=== PATIENT | female | born 1955 | race Caucasian/White ===

== ENCOUNTER 2016-06-24 09:32 | Emergency (ER) | payer SELFPAY ==
--- NOTE | 2016-06-24 09:45 | DR.GENAD ---
HPI - PCP Primary Care Physician: UNK - HPI Comment HPI Comment: PATIENT COMPREHENDS. HAVE HISTOEY OF HYPERTENTION. DENIES HEADACHE. - Complaint/Symptoms Chief Complaint Doctors Comments: LEFT SIDE WEAKNESS, LEFT SIDE GAUZE AND SLURRED SPEECH THAT STARTED 15 MIN AGO. Chief Complaint:: PT C/O STROKE LIKE SYMPTOMS THAT STARTED 15 MINS [employer]. LT SIDED WEAKNESS LT FACIAL DROOPING AND SLURRED SPEECH. - Nurses notes reviewed Nurses Notes Review: Yes - Source History Provided: Patient, EMS - Mode of Arrival Mode of Arrival: EMS - Timing Onset of Chief Complaint: 06/24/16 Came on: Suddenly - Duration Duration: Constant Duration: Minutes - Severity Severity: Moderate <TED JASSO - Last Filed: 06/24/16 11:39> PMH - PMH Past Medical History: No Past Surgical History: Yes - Family History History of Family Medical Conditions: No - Social History Does patient currently use any type of tobacco product: Yes Have you used tobacco products in the last 12 months: Yes Type of Tobacco Use: Cigarettes Does any household member use tobacco: No Alcohol Use: None Do you use any recreational Drugs:: No Lives With: Family Lives Where: Home - infectious screening In the last 2 months have you had wt loss of >10#?: NO Have you had fever, night sweats or hemotysis?: No Have you traveled outside the country in the last 6 months?: No Isolation: Standard <TED JASSO - Last Filed: 06/24/16 11:39> ROS - Review of Systems Constitutional: Weakness (LEFT SIDED WEAKNESS, RIGHT FACIAL WEAKNESS) Eyes: Other (EYS DEVIATED TO RIGHT.) ENTM: negative: Mouth Pain (ABSENT GAG REFLEX.) Respiratoy: No Symptoms Reported Cardiovascular: No Symptoms Reported Gastrointestinal/Abdominal: No Symptoms Reported Genitourinary: No Symptoms Reported Neurological: Weakness (LEFT SIDED, RIGHT FACIA.), Speech Problem Musculoskeletal: negative: Back Pain Integumentary: No Symptoms Reported Hematologic/Lymphatic: No Symptoms Reported Endocrine: No Symptoms Reported All Other Systems: Reviewed and Negative <TED JASSO - Last Filed: 06/24/16 11:39> PE - General Limitations: Other (SLURRED SPEECH) General Appearance: Alert - Head Head Exam: Normal Inspection - Eyes Eye exam: PERRL, Other (EYE DEVIATED TO RIGHT SIDE.) - ENT ENT Exam: Normal External Ear Exam External Ear Exam: Normal External Inspection TM/Canal Exam: Bilateral Normal Nose Exam: Normal Nose Exam Mouth Exam: Other (RIGHT FACIAL WEAKNESS) Throat Exam: Other (ABSENT GAG) - Neck Neck Exam: Trachea Midline - Chest Chest Inspection: Symmetric Chest Wall Rise - Respiratory Respiratory Exam: Normal Lung Sounds Bilat Respiratory Exam: Bilateral Clear to Auscultation - Cardiovascular Cardiovascular Exam: Regular Rate, Normal Rhythm, Normal Heart Sounds - Abdominal Exam Abdominal Exam: Normal Bowel Sounds, Soft, Tenderness - Extremities Extremities Exam: Other (WEAKNERSS LEFT SIDE AND RIFHR FACE.) - Back Back Exam: Normal Inspection - Neurologic Neurological Exam: Alert, Oriented X3, Motor Sensory Deficit (LEFT SIDED WEAKNESS ), Other (RIGHT FACIAL WEAKNESS). negative: Reflexes Normal (RE) - Psychiatric Psychiatric Exam: Anxious - Skin Skin Exam: Normal Color <TED JASSO - Last Filed: 06/24/16 11:39> - Vital Signs Vitals: Pulse Rate [Right Radial] 106 Respiratory Rate 18 Blood Pressure [Left Arm] 150/70 Blood Pressure 144/65 O2 Sat by Pulse Oximetry 98 (KRISS GARY) (TED JASSO) Course - Treatment Treatment: 1020: case discussed with Dr. Ochoa requested admit to medical and he would consult. Dr. Paulino accepted patient in [facility]. <KRISS GARY - Last Filed: 06/24/16 10:36> ROR - Labs Reviewed Result Diagrams: 06/24/16 09:50 06/24/16 09:50 <KRISS GARY - Last Filed: 06/24/16 10:36> - Labs Reviewed Result Diagrams: 06/24/16 09:50 06/24/16 09:50 <TED JASSO - Last Filed: 06/24/16 11:39> - Labs Reviewed Laboratory: WBC 9.7 X10^3/uL (3.6-10.0) 06/24/16 09:50 RBC 4.78 X10^6/uL (3.5-5.4) 06/24/16 09:50 Hgb 8.8 g/dL (12.0-16.0) L 06/24/16 09:50 Hct 29.5 % (36.0-47.0) L 06/24/16 09:50 MCV 61.6 fL (80.0-100.0) L 06/24/16 09:50 MCH 18.5 pg (27.0-34.0) L 06/24/16 09:50 MCHC 29.9 g/dL (33.0-35.0) L 06/24/16 09:50 RDW 17.0 % (11.6-16.5) H 06/24/16 09:50 Plt Count 288 X10^3/uL (150.0-450.0) 06/24/16 09:50 Plt Count Comment Adequate (ADEQUATE) 06/24/16 09:50 MPV 8.1 fL (7.4-11.0) 06/24/16 09:50 Neut % 60.7 % (42.0-75.0) 06/24/16 09:50 Lymph % 33.4 % (21.0-51.0) 06/24/16 09:50 [place] % 3.7 % (0.0-13.0) 06/24/16 09:50 Eos % 1.3 % (0.9-2.9) 06/24/16 09:50 Baso % 0.9 % (0.2-1.0) 06/24/16 09:50 Neut # 5.9 x10^3/uL (2.2-4.8) H 06/24/16 09:50 Lymph # 3.2 X10^3/uL (1.3-2.9) H 06/24/16 09:50 [place] # 0.4 x10^3/uL (0.3-0.8) 06/24/16 09:50 Eos # 0.1 x10^3/uL (0.0-0.2) 06/24/16 09:50 Baso # 0.1 X10^3/uL (0.0-0.1) 06/24/16 09:50 Absolute Nucleated RBC 0.0 /100WBC 06/24/16 09:50 Plt Morphology Comment Normal (NORMAL) 06/24/16 09:50 RBC Morphology Abnormal (NORMAL) A 06/24/16 09:50 Hypochromasia 3+ A 06/24/16 09:50 Poikilocytosis 1+ A 06/24/16 09:50 Microcytosis 2+ A 06/24/16 09:50 Macrocytosis 1+ A 06/24/16 09:50 Target Cells Slight A 06/24/16 09:50 INR Target Range - 06/24/16 09:50 INR 1.01 (0.8-1.3) 06/24/16 09:50 PTT 27.9 SECONDS (22.9-36.5) 06/24/16 09:50 PTT Comment - 06/24/16 09:50 Fibrinogen 388 mg/dL (239-489) 06/24/16 09:50 Sodium 140 mmol/L (136-145) 06/24/16 09:50 Corrected Sodium 140 mmol/L (136-145) 06/24/16 09:50 Potassium 4.3 mmol/L (3.5-5.1) 06/24/16 09:50 Chloride 107 mmol/L (98-107) 06/24/16 09:50 Carbon Dioxide 25.8 mmol/L (21-32) 06/24/16 09:50 BUN 8 mg/dL (7-18) 06/24/16 09:50 Creatinine 0.74 mg/dL (0.55-1.02) 06/24/16 09:50 Est GFR (MDRD) Af Amer > 60 (>60) 06/24/16 09:50 Est GFR (MDRD) Non-Af > 60 (>60) 06/24/16 09:50 Glucose 113 mg/dL (65-99) H 06/24/16 09:50 Calcium 8.5 mg/dL (8.5-10.1) 06/24/16 09:50 Corrected Calcium TNP 06/24/16 09:50 Total Bilirubin 0.50 mg/dL (0.2-1.0) 06/24/16 09:50 AST 18 Units/L (15-37) 06/24/16 09:50 ALT 23 Units/L (12-78) 06/24/16 09:50 Alkaline Phosphatase 114 Units/L (46-116) 06/24/16 09:50 Total Protein 7.1 g/dL (6.4-8.2) 06/24/16 09:50 Albumin 3.6 g/dL (3.4-5.0) 06/24/16 09:50 Globulin 3.5 g/dL (2.5-4.5) 06/24/16 09:50 Albumin/Globulin Ratio 1.0 Ratio (1.1-2.1) L 06/24/16 09:50 Triglycerides 88 mg/dL (0-150) 06/24/16 09:50 Cholesterol 181 mg/dL (0-200) 06/24/16 09:50 LDL Cholesterol, Calc 127 mg/dL (0-100) H 06/24/16 09:50 HDL Cholesterol 36 mg/dL (40-60) L 06/24/16 09:50 Cholesterol/HDL Ratio 5.0 (0.0-5.0) 06/24/16 09:50 Specimen Type Catherized urine 06/24/16 09:58 Urine Color Yellow (YELLOW) 06/24/16 09:58 Urine Appearance Cloudy (CLEAR) 06/24/16 09:58 Urine pH 6.0 (5.0 - 8.0) 06/24/16 09:58 Ur Specific [place] 1.015 (1.000-1.030) 06/24/16 09:58 Urine Protein 1+ (NEGATIVE) 06/24/16 09:58 Urine Glucose (UA) Negative (NEGATIVE) 06/24/16 09:58 Urine Ketones Negative (NEGATIVE) 06/24/16 09:58 Urine Occult Blood 1+ (NEGATIVE) 06/24/16 09:58 Urine Nitrite Positive (NEGATIVE) 06/24/16 09:58 Urine Bilirubin Negative (NEGATIVE) 06/24/16 09:58 Urine Urobilinogen Normal (NORMAL) 06/24/16 09:58 Ur Leukocyte Esterase 3+ (NEGATIVE) 06/24/16 09:58 Urine RBC 0-2 /HPF (NEGATIVE) 06/24/16 09:58 Urine WBC 25-50 /HPF (NEGATIVE) 06/24/16 09:58 Ur Squamous Epith Cells Negative /HPF (NEGATIVE) 06/24/16 09:58 Urine Bacteria 4+ /HPF (NEGATIVE) 06/24/16 09:58 Ur Culture Indicated? Yes/culture set up 06/24/16 09:58 (KRISS GARY) <KRISS GARY - Last Filed: 06/24/16 10:36> <TED JASSO - Last Filed: 06/24/16 11:39> - Diagnosis Discharge Problem: Brain mass - Discharge Plan Disposition: ADMITTED INPATIENT Condition: Stable - Follow ups/Referrals Follow ups/Referrals: Amber BOLANOSc [Primary Care Provider] - 3 days - Instructions
--- NOTE | 2016-06-24 09:56 | CT ---
HISTORY: Altered mental status, left-sided weakness Study: CT head without contrast Comparison: None Technique: Axial non contrast images with coronal and sagittal reformats. Dose reduction procedures were used with MA/kv adjusted for body size. Findings: The ventricles are normal in size, shape, and position. There is a large area of decreased attenuati on in the right frontal white matter and cortex having the appearance of an old CVA. More posteriorl y in the right frontal lobe there is an area decreased attenuation in the cortex and subcortical whi te matter suggestive of an old CVA. There is an area of decreased attenuation in the left posterior parietal cortex and white matter having the appearance of an old CVA. There is an old left occipital CVA. Originating from the posterior aspect of the falx and best visualized on series 4 axial images 17 through 20, series 6 sagittal images 13 through 15 and series 5 coronal images 29 through 31 is a slightly hyperdense 1.89 by 1.7 by 1.74 centimeter mass likely representing a partially calcified meningioma. No evidence for hemorrhage or extra-axial fluid collection is identified. No definite ev idence for recent CVA is identified, however, if recent CVA or extension of 1 of the patient's multi ple old CVAs is a strong clinical consideration MRI with and without contrast and with diffusion pratibha ging would be of further diagnostic value. IMPRESSION: No definite evidence for acute CVA or hemorrhage Multiple old CVAs as described 1.89 x 1.7 x 1.74 centimeter slightly hyperdense mass originating on the left side of the posterior falx and likely representing a meningioma. Recommendation: Consider MRI with and without contrast and with diffusion imaging Reported By:
[2016-06-24 10:02] LABS: EOSINOPHILS # (AUTO) 0.1 x10^3/uL (0.0-0.2); EOSINOPHILS % (AUTO) 1.3 % (0.9-2.9); HEMOGLOBIN 8.8 g/dL (12.0-16.0); MEAN CORPUSCULAR HGB CONC 29.9 g/dL (33.0-35.0); MONOCYTES # (AUTO) 0.4 x10^3/uL (0.3-0.8); RED BLOOD COUNT 4.78 X10^6/uL (3.5-5.4)
[2016-06-24 10:12] VITALS: BP 150/70
[2016-06-24 10:14] LABS: ALANINE AMINOTRANSFERASE 23 Units/L (12-78); ALBUMIN 3.6 g/dL (3.4-5.0); ALKALINE PHOSPHATASE 114 Units/L (46-116); ASPARTATE AMINO TRANSFERASE 18 Units/L (15-37); BLOOD UREA NITROGEN 8 mg/dL (7-18); CALCIUM 8.5 mg/dL (8.5-10.1); CARBON DIOXIDE 25.8 mmol/L (21-32); CHLORIDE 107 mmol/L (98-107); CHOLESTEROL 181 mg/dL (0-200); COR NA(FOR HYPERGLY) 140 mmol/L (136-145); CREATININE 0.74 mg/dL (0.55-1.02); GLUCOSE 113 mg/dL (65-99); HDL CHOLESTEROL 36 mg/dL (40-60); SODIUM 140 mmol/L (136-145); TOTAL PROTEIN 7.1 g/dL (6.4-8.2); TRIGLYCERIDES 88 mg/dL (0-150); eGFR BLACK RACES > 60 (>60); eGFR NON BLACK RACES > 60 (>60)
[2016-06-24 10:17] LABS: BILIRUBIN,URINE NEGATIVE (NEGATIVE); BLOOD/HEMOGLOBIN,URINE 1+ (NEGATIVE); GLUCOSE, URINE NEGATIVE (NEGATIVE); KETONES,URINE NEGATIVE (NEGATIVE); LEUKOCYTE ESTERASE ,URINE 3+ (NEGATIVE); NITRITES,URINE POSITIVE (NEGATIVE); PROTEIN,URINE 1+ (NEGATIVE); UROBILINOGEN,URINE NORMAL (NORMAL)
[2016-06-24 10:17] LABS: BASOPHILS # (AUTO) 0.1 X10^3/uL (0.0-0.1); BASOPHILS % (AUTO) 0.9 % (0.2-1.0); HEMATOCRIT 29.5 % (36.0-47.0); LYMPHOCYTES # (AUTO) 3.2 X10^3/uL (1.3-2.9); LYMPHOCYTES % (AUTO) 33.4 % (21.0-51.0); MEAN CORPUSCULAR HEMOGLOBIN 18.5 pg (27.0-34.0); MEAN CORPUSCULAR VOLUME 61.6 fL (80.0-100.0); MEAN PLATELET VOLUME 8.1 fL (7.4-11.0); MONOCYTES % (AUTO) 3.7 % (0.0-13.0); NEUTROPHILS # (AUTO) 5.9 x10^3/uL (2.2-4.8); NEUTROPHILS % (AUTO) 60.7 % (42.0-75.0); PLATELET COUNT 288 X10^3/uL (150.0-450.0); WHITE BLOOD COUNT 9.7 X10^3/uL (3.6-10.0)
[2016-06-24 10:21] LABS: HYPOCHROMASIA 3+; MICROCYTOSIS 2+; PLATELET MORPHOLOGY COMMENT NORMAL (NORMAL); POIKILOCYTOSIS 1+
[2016-06-24 10:22] LABS: TARGET CELLS SLIGHT
[2016-06-24 10:26] LABS: APPEARANCE,URINE CLOUDY (CLEAR); BACTERIA,URINE 4+ /HPF (NEGATIVE); COLOR,URINE YELLOW (YELLOW); RBC,URINE 0-2 /HPF (NEGATIVE); SQUAMOUS EPITHELIAL CELL,UR NEGATIVE /HPF (NEGATIVE)
== END 2016-06-24 10:53 | disposition short-term general hospital (02) ==
LOC: ER 09:32
DX: G93.89 Other specified disorders of brain (principal); B96.29 Other Escherichia coli [E. coli] as the cause of diseases classified elsewhere
CPT/HCPCS: 36415; 51702; 70450; 80053; 80061; 81001; 85025; 85384; 85610; 85730; 87086; 87186; 93005; 93010; 96365; 99284; 99285; A4222

== ENCOUNTER 2017-02-23 05:24 | Emergency (ER) | payer SELFPAY ==
[2017-02-23 05:47] VITALS: BP 126/67; BMI 23.6
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
[2017-02-23 06:04] LABS: BILIRUBIN,URINE NEGATIVE (NEGATIVE); BLOOD/HEMOGLOBIN,URINE 1+ (NEGATIVE); GLUCOSE, URINE NEGATIVE (NEGATIVE); KETONES,URINE NEGATIVE (NEGATIVE); LEUKOCYTE ESTERASE ,URINE 2+ (NEGATIVE); NITRITES,URINE NEGATIVE (NEGATIVE); PH,URINE 6.5 (5.0 - 8.0); PROTEIN,URINE 1+ (NEGATIVE); UROBILINOGEN,URINE NORMAL (NORMAL)
[2017-02-23 06:12] LABS: APPEARANCE,URINE CLOUDY (CLEAR); BACTERIA,URINE 3+ /HPF (NEGATIVE); COLOR,URINE YELLOW (YELLOW); SQUAMOUS EPITHELIAL CELL,UR RARE /HPF (NEGATIVE)
[2017-02-23 06:23] LABS: BASOPHILS # (AUTO) 0.1 X10^3/uL (0.0-0.1); BASOPHILS % (AUTO) 1.3 % (0.2-1.0); EOSINOPHILS # (AUTO) 0.1 x10^3/uL (0.0-0.2); EOSINOPHILS % (AUTO) 1.2 % (0.9-2.9); HEMATOCRIT 42.5 % (36.0-47.0); HEMOGLOBIN 14.2 g/dL (12.0-16.0); LYMPHOCYTES # (AUTO) 2.7 X10^3/uL (1.3-2.9); LYMPHOCYTES % (AUTO) 27.5 % (21.0-51.0); MEAN CORPUSCULAR HEMOGLOBIN 29.8 pg (27.0-34.0); MEAN CORPUSCULAR HGB CONC 33.6 g/dL (33.0-35.0); MEAN CORPUSCULAR VOLUME 88.7 fL (80.0-100.0); MEAN PLATELET VOLUME 8.3 fL (7.4-11.0); MONOCYTES # (AUTO) 0.5 x10^3/uL (0.3-0.8); MONOCYTES % (AUTO) 5.2 % (0.0-13.0); NEUTROPHILS # (AUTO) 6.3 x10^3/uL (2.2-4.8); NEUTROPHILS % (AUTO) 64.8 % (42.0-75.0); PLATELET COUNT 346 X10^3/uL (150.0-450.0); RED BLOOD COUNT 4.78 X10^6/uL (3.5-5.4); RED CELL DISTRIBUTION WIDTH 13.5 % (11.6-16.5); WHITE BLOOD COUNT 9.7 X10^3/uL (3.6-10.0)
[2017-02-23 06:43] LABS: ALANINE AMINOTRANSFERASE 18 Units/L (12-78); ALBUMIN 3.3 g/dL (3.4-5.0); ALKALINE PHOSPHATASE 76 Units/L (46-116); ASPARTATE AMINO TRANSFERASE 16 Units/L (15-37); BLOOD UREA NITROGEN 9 mg/dL (7-18); CALCIUM 9.2 mg/dL (8.5-10.1); CARBON DIOXIDE 25.4 mmol/L (21-32); CHLORIDE 106 mmol/L (98-107); COR CA(FOR HYPOALB) 9.8 mg/dL (8.5-10.1); CREATININE 0.63 mg/dL (0.55-1.02); SODIUM 143 mmol/L (136-145); TOTAL PROTEIN 6.9 g/dL (6.4-8.2); eGFR BLACK RACES > 60 (>60); eGFR NON BLACK RACES > 60 (>60)
--- NOTE | 2017-02-23 06:53 | CT ---
HISTORY: Altered mental status Study: CT head without contrast Comparison: 06/24/2016 Technique: Axial noncontrast images with coronal and sagittal reformats. Dose reduction procedures we re used with mA/kv adjusted for body size. Findings: The ventricles are normal in size, shape, and position. There is decreased attenuation in the periven tricular white matter suggestive of small vessel vascular disease. There is an area of encephalomalac ia in the right frontal lobe consistent with an old CVA. There is an area of encephalomalacia in the distribution of the right middle cerebral artery likely due to an old CVA. This has increased in size since the prior examination but still does not appear recent. There is an old left posterior parieta l CVA unchanged from the prior examination. There is no definite evidence for recent CVA hemorrhage o r extra-axial fluid collection. Once again noted is a slightly hyperdense mass in originating from th e left side of the posterior falx consistent with a partially calcified meningioma unchanged from the prior examination. If acute CVA or extension of 1 of the patient's old CVAs is suspected MRI with di ffusion imaging is recommended for further evaluation. IMPRESSION: No definite acute intracranial abnormality Large area of encephalomalacia in the distribution of the right MCA increased in size when compared w ith the prior examination but not visibly recent Old CVAs right frontal left posterior parietal regions Stable left posterior falx meningioma Reported By:
[2017-02-23] MEDS ORDERED: K-LYTE EFFERVESCENT ONE (07:10)
[2017-02-23] MEDS ORDERED: K-LYTE EFFERVESCENT PO SCH (08:00)
== END 2017-02-23 07:39 | disposition home or self-care (01) ==
LOC: ER 05:24
DX: G93.89 Other specified disorders of brain (principal); I63.9 Cerebral infarction, unspecified; D32.9 Benign neoplasm of meninges, unspecified; N30.01 Acute cystitis with hematuria; B96.29 Other Escherichia coli [E. coli] as the cause of diseases classified elsewhere; R51 Headache
CPT/HCPCS: 36415; 70450; 80053; 80307; 81001; 85025; 87086; 87088; 87186; 99283; G0434

== ENCOUNTER 2022-06-03 13:55 | Inpatient (IN) ==
[2022-06-03 15:19] VITALS: BMI 34.2
[2022-06-03] MEDS: NS 1,000 ML IV 1,000 ML IV SCH (16:07)
[2022-06-03 16:18] LABS: BASOPHILS # (AUTO) 0.1 X10^3/uL (0.0-0.1); BASOPHILS % (AUTO) 0.9 % (0.2-1.0); EOSINOPHILS # (AUTO) 0.1 x10^3/uL (0.0-0.2); EOSINOPHILS % (AUTO) 0.8 % (0.9-2.9); HEMATOCRIT 39.6 % (36.0-47.0); HEMOGLOBIN 12.9 g/dL (12.0-16.0); LYMPHOCYTES # (AUTO) 1.9 X10^3/uL (1.3-2.9); LYMPHOCYTES % (AUTO) 14.9 % (21.0-51.0); MEAN CORPUSCULAR HEMOGLOBIN 27.6 pg (27.0-34.0); MEAN CORPUSCULAR HGB CONC 32.7 g/dL (33.0-35.0); MEAN CORPUSCULAR VOLUME 84.6 fL (80.0-100.0); MONOCYTES # (AUTO) 1.2 x10^3/uL (0.3-0.8); MONOCYTES % (AUTO) 9.4 % (0.0-13.0); NEUTROPHILS # (AUTO) 9.6 x10^3/uL (2.2-4.8); RED BLOOD COUNT 4.68 X10^6/uL (3.5-5.4); RED CELL DISTRIBUTION WIDTH 14.8 % (11.6-16.5)
[2022-06-03 16:35] LABS: ALANINE AMINOTRANSFERASE 19 Units/L (12-78); ALBUMIN 2.8 g/dL (3.4-5.0); ALKALINE PHOSPHATASE 92 Units/L (46-116); ASPARTATE AMINO TRANSFERASE 18 Units/L (15-37); BLOOD UREA NITROGEN 13 mg/dL (7-18); CALCIUM 9.2 mg/dL (8.5-10.1); CARBON DIOXIDE 31.7 mmol/L (21-32); CHLORIDE 104 mmol/L (98-107); COR CA(FOR HYPOALB) 10.2 mg/dL (8.5-10.1); COR NA(FOR HYPERGLY) 143 mmol/L (136-145); CREATININE 0.83 mg/dL (0.55-1.02); SODIUM 142 mmol/L (136-145); TOTAL PROTEIN 7.2 g/dL (6.4-8.2); eGFR NON BLACK RACES > 60 (>60)
[2022-06-03] MEDS ORDERED: AMBIEN PO PRN (17:46)
[2022-06-03 20:15] LABS: BILIRUBIN,URINE NEGATIVE (NEGATIVE); BLOOD/HEMOGLOBIN,URINE 3+ (NEGATIVE); GLUCOSE, URINE NEGATIVE (NEGATIVE); KETONES,URINE NEGATIVE (NEGATIVE); LEUKOCYTE ESTERASE ,URINE 3+ (NEGATIVE); NITRITES,URINE NEGATIVE (NEGATIVE); PROTEIN,URINE 2+ (NEGATIVE); UROBILINOGEN,URINE NORMAL (NORMAL)
[2022-06-03 20:18] LABS: APPEARANCE,URINE CLOUDY (CLEAR); BACTERIA,URINE 2+ /HPF (NEGATIVE); COLOR,URINE YELLOW (YELLOW); SQUAMOUS EPITHELIAL CELL,UR FEW /HPF (NEGATIVE)
[2022-06-03] MEDS: MERREM VIAL 1 G in NS 100 ML IV 100 ML IV SCH (21:00)
[2022-06-03] MEDS ORDERED: MERREM VIAL 500 MG in NS 100 ML IV 100 ML IV SCH (22:00)
[2022-06-03] MEDS ORDERED: TYLENOL 325 MG TAB PO PRN (22:53)
[2022-06-04 06:15] LABS: BASOPHILS # (AUTO) 0.2 X10^3/uL (0.0-0.1); BASOPHILS % (AUTO) 1.7 % (0.2-1.0); EOSINOPHILS # (AUTO) 0.2 x10^3/uL (0.0-0.2); HEMATOCRIT 36.9 % (36.0-47.0); HEMOGLOBIN 12.1 g/dL (12.0-16.0); LYMPHOCYTES # (AUTO) 2.1 X10^3/uL (1.3-2.9); LYMPHOCYTES % (AUTO) 18.9 % (21.0-51.0); MEAN CORPUSCULAR HEMOGLOBIN 27.5 pg (27.0-34.0); MEAN CORPUSCULAR HGB CONC 32.9 g/dL (33.0-35.0); MEAN CORPUSCULAR VOLUME 83.6 fL (80.0-100.0); MEAN PLATELET VOLUME 8.3 fL (7.4-11.0); MONOCYTES # (AUTO) 0.7 x10^3/uL (0.3-0.8); MONOCYTES % (AUTO) 6.9 % (0.0-13.0); NEUTROPHILS # (AUTO) 7.7 x10^3/uL (2.2-4.8); NEUTROPHILS % (AUTO) 70.5 % (42.0-75.0); RED BLOOD COUNT 4.42 X10^6/uL (3.5-5.4); RED CELL DISTRIBUTION WIDTH 14.3 % (11.6-16.5); WHITE BLOOD COUNT 10.9 X10^3/uL (3.6-10.0)
[2022-06-04] MEDS: MERREM VIAL 1 G in NS 100 ML IV 100 ML IV SCH ×3 (06:15→21:43)
[2022-06-04 06:26] LABS: ALANINE AMINOTRANSFERASE 21 Units/L (12-78); ALBUMIN 2.5 g/dL (3.4-5.0); ALKALINE PHOSPHATASE 83 Units/L (46-116); ASPARTATE AMINO TRANSFERASE 20 Units/L (15-37); BLOOD UREA NITROGEN 10 mg/dL (7-18); CALCIUM 8.5 mg/dL (8.5-10.1); CARBON DIOXIDE 24.9 mmol/L (21-32); CHLORIDE 105 mmol/L (98-107); COR CA(FOR HYPOALB) 9.7 mg/dL (8.5-10.1); COR NA(FOR HYPERGLY) 141 mmol/L (136-145); CREATININE 0.71 mg/dL (0.55-1.02); SODIUM 140 mmol/L (136-145); TOTAL PROTEIN 6.5 g/dL (6.4-8.2); eGFR NON BLACK RACES > 60 (>60)
--- NOTE | 2022-06-04 07:43 | DR.H&P ---
H&P History & Physical for Day of: H&P Date: 06/03/22 Chief Complaint Chief Complaint: Dysuria Confusion Lower abdominal pain Allergies Allergies Allergy/AdvReac Type Severity Reaction Status Date / Time Penicillins Allergy Mild Verified 05/15/22 09:25 meperidine [From Demerol] Allergy Verified 06/03/22 16:07 Sulfa (Sulfonamide Allergy Verified 06/03/22 16:06 Antibiotics) [SULFA] History of Present Illness History of Present Illness: Pt is a 66 year old female admitted from clinic after failing outpatient treatment for urinary tract infection. Presents with her daughter for c/o possible UTI. Reports she had some vaginal itching last week and she took a Diflucan pill because she has a hx of yeast infections. She reports she then started with mild dysuria, frequency, and urinary odor a few days ago. Reports she had a fever of 101.6 F Tuesday afternoon, and 99.6 F yesterday afternoon. Reports she has also had some chills. Reports she took ibuprofen. Pt daughter reports she has also seemed to be more confused the last few days. Reports she wears pull ups for occasional accidents, but she has had a lot more the last few days. Pt daughter also reports she was acting confused this morning and going the wrong way to get to the bathroom, for example. Reports she was treated for a UTI last month with Bactrim. She reports the medication caused her to by shaky, N/, and feel really bad. Reports her symptoms did seem to clear up then. Patient denies cough, congestion, N/V, SOB, CP, palpitations, and any other symptoms. Reports she does drink water and has been eating and drinking normal for the most part. Labs: Wbc 13, Hgb 12.9, Plt 236, Na 142, K 3.6, Creatinine 0.83, Glucose 127, Blood/Urine culture. Will admit patient for altered mental status likely due to acute urinary tract infection. Will start on IVF NS@75ml/h, regular diet, resume home medications. Based on previous urine culture will start patient on antibiotics IV meropenem. Continue to closely monitor and follow up labs in the morning. Past Medical History Past Medical History: CVA, Headaches and Hypertension Past Surgical History Surgical History: and Hysterectomy Family History Family Medical History: Diabetes Mellitus, Cancer, Coronary Artery Disease and Hypertension Social History Does patient currently use any type of tobacco product: Yes Have you used tobacco products in the last 12 months: No Type of Tobacco Use: Cigarettes How many years tobacco product used: 35 Alcohol Use: Rarely Drug Use: None Medications Home Medications: Penicillins Allergy (Mild, Verified 05/15/22 09:25) meperidine [From Demerol] Allergy (Verified 06/03/22 16:07) Sulfa (Sulfonamide Antibiotics) [SULFA] Allergy (Verified 06/03/22 16:06) CONTINUE taking the following medications aspirin 81 mg tablet,delayed release 81 mg PO QDAY 06/03/22 [History] Labs Result Diagrams: 06/04/22 05:45 06/04/22 05:45 Labs: Laboratory WBC 10.9 X10^3/uL (3.6-10.0) H 06/04/22 05:45 RBC 4.42 X10^6/uL (3.5-5.4) 06/04/22 05:45 Hgb 12.1 g/dL (12.0-16.0) 06/04/22 05:45 Hct 36.9 % (36.0-47.0) 06/04/22 05:45 MCV 83.6 fL (80.0-100.0) 06/04/22 05:45 MCH 27.5 pg (27.0-34.0) 06/04/22 05:45 MCHC 32.9 g/dL (33.0-35.0) L 06/04/22 05:45 RDW 14.3 % (11.6-16.5) 06/04/22 05:45 Plt Count 231 X10^3/uL (150.0-450.0) 06/04/22 05:45 MPV 8.3 fL (7.4-11.0) 06/04/22 05:45 Neut % (Auto) 70.5 % (42.0-75.0) 06/04/22 05:45 Lymph % (Auto) 18.9 % (21.0-51.0) L 06/04/22 05:45 [place] % (Auto) 6.9 % (0.0-13.0) 06/04/22 05:45 Eos % (Auto) 2.0 % (0.9-2.9) 06/04/22 05:45 Baso % (Auto) 1.7 % (0.2-1.0) H 06/04/22 05:45 Neut # (Auto) 7.7 x10^3/uL (2.2-4.8) H 06/04/22 05:45 Lymph # (Auto) 2.1 X10^3/uL (1.3-2.9) 06/04/22 05:45 [place] # (Auto) 0.7 x10^3/uL (0.3-0.8) 06/04/22 05:45 Eos # (Auto) 0.2 x10^3/uL (0.0-0.2) 06/04/22 05:45 Baso # (Auto) 0.2 X10^3/uL (0.0-0.1) H 06/04/22 05:45 Absolute Nucleated RBC 0.0 /100WBC 06/04/22 05:45 Sodium 140 mmol/L (136-145) 06/04/22 05:45 Corrected Sodium 141 mmol/L (136-145) 06/04/22 05:45 Potassium 3.4 mmol/L (3.5-5.1) L 06/04/22 05:45 Chloride 105 mmol/L (98-107) 06/04/22 05:45 Carbon Dioxide 24.9 mmol/L (21-32) 06/04/22 05:45 BUN 10 mg/dL (7-18) 06/04/22 05:45 Creatinine 0.71 mg/dL (0.55-1.02) 06/04/22 05:45 Est GFR (MDRD) Af Amer > 60 (>60) 06/04/22 05:45 Est GFR (MDRD) Non-Af > 60 (>60) 06/04/22 05:45 Glucose 122 mg/dL (65-99) H 06/04/22 05:45 Lactic Acid 1.0 mmol/L (0.4-2.0) 06/03/22 16:00 Calcium 8.5 mg/dL (8.5-10.1) 06/04/22 05:45 Corrected Calcium 9.7 mg/dL (8.5-10.1) 06/04/22 05:45 Total Bilirubin 0.40 mg/dL (0.2-1.0) 06/04/22 05:45 AST 20 Units/L (15-37) 06/04/22 05:45 ALT 21 Units/L (12-78) 06/04/22 05:45 Alkaline Phosphatase 83 Units/L (46-116) 06/04/22 05:45 Total Protein 6.5 g/dL (6.4-8.2) 06/04/22 05:45 Albumin 2.5 g/dL (3.4-5.0) L 06/04/22 05:45 Globulin 4.0 g/dL (2.5-4.5) 06/04/22 05:45 Albumin/Globulin Ratio 0.6 Ratio (1.1-2.1) L 06/04/22 05:45 Specimen Type Clean catch urine 06/03/22 20:04 Urine Color Yellow (YELLOW) 06/03/22 20:04 Urine Appearance Cloudy (CLEAR) 06/03/22 20:04 Urine pH 8.0 (5.0 - 8.0) 06/03/22 20:04 Ur Specific [place] 1.010 (1.000-1.030) 06/03/22 20:04 Urine Protein 2+ (NEGATIVE) 06/03/22 20:04 Urine Glucose (UA) Negative (NEGATIVE) 06/03/22 20:04 Urine Ketones Negative (NEGATIVE) 06/03/22 20:04 Urine Blood 3+ (NEGATIVE) 06/03/22 20:04 Urine Nitrite Negative (NEGATIVE) 06/03/22 20:04 Urine Bilirubin Negative (NEGATIVE) 06/03/22 20:04 Urine Urobilinogen Normal (NORMAL) 06/03/22 20:04 Ur Leukocyte Esterase 3+ (NEGATIVE) 06/03/22 20:04 Urine RBC 5-10 /HPF (0-3) A 06/03/22 20:04 Urine WBC Tntc /HPF (0-5) A 06/03/22 20:04 Ur Squamous Epith Cells Few /HPF (NEGATIVE) 06/03/22 20:04 Urine Bacteria 2+ /HPF (NEGATIVE) 06/03/22 20:04 Ur Culture Indicated? Yes/culture set up 06/03/22 20:04 Review of Systems Constitutional: Fever, Chills and Weakness Eyes: No Symptoms Reported ENT: No Symptoms Reported Respiratory: No Symptoms Reported Cardiovascular: No Symptoms Reported Gastrointestinal: Abdominal Pain Genitourinary: Dysuria Musculoskeletal: No Symptoms Reported Skin: No Symptoms Reported Neurological: No Symptoms Reported Physical Exam Vital Signs: Temperature 98.3 F Pulse Rate [Left Radial] 103 Respiratory Rate 20 Blood Pressure [Right Arm] 132/68 Blood Pressure [Left Arm] 119/63 Blood Pressure 129/76 O2 Sat by Pulse Oximetry 95 Oriented: Normal Eyes: Normal Ear: Normal Nose: Normal Throat: Normal Respiratory: Clear Throughout Cardiovascular: Normal : Normal Auscultation: Bowel Sounds: Normal Palpation: Normal Tenderness: Suprapubic Skin: Normal Musculoskeletal: Normal Psychiatric: Normal Mood Description: Calm and Appropriate Affect: Normal Speech Pattern: Clear and Appropriate Assessment/Plan (1) Fever: Status: Acute (2) Acute cystitis: Narrative Support Text: IV antibiotics Blood and urine cultures pending. Status: Acute (3) Altered mental status: Status: Acute Review H&P Reviewed: Yes Patient was examined?: Yes
[2022-06-04] MEDS ORDERED: AMBIEN PO PRN (07:44)
[2022-06-04] MEDS ORDERED: K-RIDER 10 MEQ/NS 100 ML 10 MEQ/100 ML BAG IV PRN (08:03)
[2022-06-04] MEDS ORDERED: KLOR-CON PO PRN (08:03)
[2022-06-04] MEDS ORDERED: POTASSIUM CHL 40 MEQ/NS 0.45% 500 ML IV PRN (08:03)
[2022-06-04] MEDS ORDERED: MICRO K EXTEN CAP 10 MEQ PO PRN (08:03)
[2022-06-04] MEDS ORDERED: POTASSIUM CHLORIDE LIQ 20 MEQ UDC PO PRN (08:03)
[2022-06-04] MEDS ORDERED: POTASSIUM CHL 60 MEQ/NS 0.45% 500 ML IV PRN (08:03)
[2022-06-04] MEDS: NS 1,000 ML IV 1,000 ML IV SCH (09:06)
[2022-06-04] MEDS: ASPIRIN EC 81 MG PO SCH (09:07)
[2022-06-04] MEDS: MAGNESIUM SULFATE 1 GRAM/100 mL PREMIX 1 G/100 ML BAG IV PRN ×2 (09:07→11:49)
[2022-06-04] MEDS: LIPITOR TAB 40 MG PO SCH (21:43)
[2022-06-04] MEDS: LIORESAL PO PRN (21:43)
[2022-06-04] MEDS: XANAX PO PRN (21:44)
[2022-06-04] MEDS: NORCO 10/325 TAB PO PRN (21:44)
[2022-06-04] MEDS: NEURONTIN CAP 100 MG PO PRN (21:45)
[2022-06-04] MEDS ORDERED: BUTT CREAM (COMPOUND) TOP PRN (21:47)
[2022-06-05] MEDS: MERREM VIAL 1 G in NS 100 ML IV 100 ML IV SCH ×3 (05:02→22:08)
[2022-06-05] MEDS: NS 1,000 ML IV 1,000 ML IV SCH ×3 (05:02→22:13)
[2022-06-05 06:39] LABS: BASOPHILS # (AUTO) 0.1 X10^3/uL (0.0-0.1); BASOPHILS % (AUTO) 0.8 % (0.2-1.0); EOSINOPHILS # (AUTO) 0.5 x10^3/uL (0.0-0.2); EOSINOPHILS % (AUTO) 6.6 % (0.9-2.9); HEMATOCRIT 34.2 % (36.0-47.0); HEMOGLOBIN 11.5 g/dL (12.0-16.0); LYMPHOCYTES # (AUTO) 2.9 X10^3/uL (1.3-2.9); LYMPHOCYTES % (AUTO) 36.1 % (21.0-51.0); MEAN CORPUSCULAR HGB CONC 33.5 g/dL (33.0-35.0); MEAN CORPUSCULAR VOLUME 83.7 fL (80.0-100.0); MEAN PLATELET VOLUME 8.3 fL (7.4-11.0); MONOCYTES # (AUTO) 0.6 x10^3/uL (0.3-0.8); MONOCYTES % (AUTO) 7.6 % (0.0-13.0); NEUTROPHILS % (AUTO) 48.9 % (42.0-75.0); RED BLOOD COUNT 4.09 X10^6/uL (3.5-5.4); RED CELL DISTRIBUTION WIDTH 14.6 % (11.6-16.5); WHITE BLOOD COUNT 8.1 X10^3/uL (3.6-10.0)
[2022-06-05 06:49] LABS: ALANINE AMINOTRANSFERASE 28 Units/L (12-78); ALBUMIN 2.3 g/dL (3.4-5.0); ALKALINE PHOSPHATASE 77 Units/L (46-116); ASPARTATE AMINO TRANSFERASE 23 Units/L (15-37); BLOOD UREA NITROGEN 6 mg/dL (7-18); CALCIUM 8.5 mg/dL (8.5-10.1); CARBON DIOXIDE 28.8 mmol/L (21-32); CHLORIDE 109 mmol/L (98-107); COR CA(FOR HYPOALB) 9.9 mg/dL (8.5-10.1); CREATININE 0.65 mg/dL (0.55-1.02); SODIUM 145 mmol/L (136-145); TOTAL PROTEIN 6.1 g/dL (6.4-8.2); eGFR NON BLACK RACES > 60 (>60)
[2022-06-05] MEDS: NEURONTIN CAP 100 MG PO PRN ×2 (08:51→22:10)
[2022-06-05] MEDS: LIORESAL PO PRN ×2 (08:51→22:11)
[2022-06-05] MEDS: ASPIRIN EC 81 MG PO SCH (08:52)
[2022-06-05] MEDS: K-DUR TAB 20 MEQ PO PRN (08:52)
[2022-06-05] MEDS: XANAX PO PRN ×2 (08:52→22:11)
[2022-06-05] MEDS: LIPITOR TAB 40 MG PO SCH (22:10)
[2022-06-05] MEDS: NORCO 10/325 TAB PO PRN (22:10)
[2022-06-06] MEDS: MERREM VIAL 1 G in NS 100 ML IV 100 ML IV SCH (05:44)
[2022-06-06] MEDS: NS 1,000 ML IV 1,000 ML IV SCH (06:10)
[2022-06-06 06:31] LABS: BASOPHILS % (AUTO) 0.5 % (0.2-1.0); EOSINOPHILS # (AUTO) 0.4 x10^3/uL (0.0-0.2); EOSINOPHILS % (AUTO) 4.7 % (0.9-2.9); HEMATOCRIT 38.6 % (36.0-47.0); HEMOGLOBIN 12.7 g/dL (12.0-16.0); LYMPHOCYTES # (AUTO) 3.2 X10^3/uL (1.3-2.9); LYMPHOCYTES % (AUTO) 40.2 % (21.0-51.0); MEAN CORPUSCULAR HEMOGLOBIN 27.6 pg (27.0-34.0); MEAN CORPUSCULAR HGB CONC 32.9 g/dL (33.0-35.0); MEAN CORPUSCULAR VOLUME 83.9 fL (80.0-100.0); MEAN PLATELET VOLUME 8.1 fL (7.4-11.0); MONOCYTES # (AUTO) 0.4 x10^3/uL (0.3-0.8); MONOCYTES % (AUTO) 4.8 % (0.0-13.0); NEUTROPHILS % (AUTO) 49.8 % (42.0-75.0); RED CELL DISTRIBUTION WIDTH 14.9 % (11.6-16.5); WHITE BLOOD COUNT 7.9 X10^3/uL (3.6-10.0)
[2022-06-06 06:45] LABS: ALANINE AMINOTRANSFERASE 29 Units/L (12-78); ALBUMIN 2.6 g/dL (3.4-5.0); ALKALINE PHOSPHATASE 87 Units/L (46-116); ASPARTATE AMINO TRANSFERASE 21 Units/L (15-37); BLOOD UREA NITROGEN 6 mg/dL (7-18); CALCIUM 9.1 mg/dL (8.5-10.1); CARBON DIOXIDE 25.5 mmol/L (21-32); CHLORIDE 111 mmol/L (98-107); COR CA(FOR HYPOALB) 10.2 mg/dL (8.5-10.1); CREATININE 0.66 mg/dL (0.55-1.02); SODIUM 145 mmol/L (136-145); TOTAL PROTEIN 6.6 g/dL (6.4-8.2); eGFR NON BLACK RACES > 60 (>60)
[2022-06-06] MEDS: ASPIRIN EC 81 MG PO SCH (10:00)
[2022-06-06] MEDS: K-DUR TAB 20 MEQ PO PRN (10:01)
--- NOTE | 2022-06-06 10:11 | PCM.PROG ---
Progress Note Progress Note for Day of Date of Exam: 06/04/22 Subjective Subjective: Pt is a 66 year old female admitted from clinic after failing outpatient treatment for urinary tract infection. This morning patient reports feeling a little better. Her dysuria is still present but has improved. No acute events overnight. Labs: Wbc 10.9, Hgb 12.1, Plt 231, Na 142, K 3.6, Creatinine 0.83, Glucose 127, Blood/Urine culture pending. Mental status back to normal, she is alert and oriented x 4. Will continue with IVF NS@75ml/h, regular diet, resume home medications. She is currently on antibiotics IV meropenem. Continue to closely monitor and follow up labs in the morning. Past Medical Family Social History Allergies: Allergies Penicillins Allergy (Mild, Verified 05/15/22 09:25) meperidine [From Demerol] Allergy (Verified 06/03/22 16:07) Sulfa (Sulfonamide Antibiotics) [SULFA] Allergy (Verified 06/03/22 16:06) Review of Systems ROS changes noted: see HPI Vital Signs and I&O's Vital Signs: Temperature 97.3 F Pulse Rate [Left Radial] 89 Respiratory Rate 18 Blood Pressure [Right Arm] 112/54 Blood Pressure [Left Arm] 119/63 Blood Pressure 129/76 O2 Sat by Pulse Oximetry 93 Intake and Output: Intake & Output 06/02/22 06/03/22 06/04/22 06/05/22 23:59 23:59 23:59 23:59 Intake Total 617 / 617 2780 / 2780 300 / 300 Output Total 600 / 600 Balance 617 / 617 2180 / 2180 300 / 300 Physical Exam Oriented: Normal Eyes: Normal Ear: Normal Nose: Normal Throat: Normal Respiratory: Normal Cardiovascular: Normal : Normal Auscultation: Bowel Sounds: Normal Palpation: Normal Tenderness: Suprapubic Skin: Normal Musculoskeletal: Normal Psychiatric: Normal Mood Description: Calm and Appropriate Affect: Normal Speech Pattern: Clear and Appropriate Laboratory and Diagnostics Result Diagrams: 06/06/22 05:40 06/06/22 05:40 Labs: 06/03/22 16:11 Blood Blood Culture - Preliminary 06/03/22 20:04 Urine,Clean Catch Urine Culture - Final Escherichia Coli 06/03/22 16:00 Blood Blood Culture - Preliminary Laboratory WBC 8.1 X10^3/uL (3.6-10.0) 06/05/22 05:51 RBC 4.09 X10^6/uL (3.5-5.4) 06/05/22 05:51 Hgb 11.5 g/dL (12.0-16.0) L 06/05/22 05:51 Hct 34.2 % (36.0-47.0) L 06/05/22 05:51 MCV 83.7 fL (80.0-100.0) 06/05/22 05:51 MCH 28.0 pg (27.0-34.0) 06/05/22 05:51 MCHC 33.5 g/dL (33.0-35.0) 06/05/22 05:51 RDW 14.6 % (11.6-16.5) 06/05/22 05:51 Plt Count 242 X10^3/uL (150.0-450.0) 06/05/22 05:51 MPV 8.3 fL (7.4-11.0) 06/05/22 05:51 Neut % (Auto) 48.9 % (42.0-75.0) 06/05/22 05:51 Lymph % (Auto) 36.1 % (21.0-51.0) 06/05/22 05:51 [place] % (Auto) 7.6 % (0.0-13.0) 06/05/22 05:51 Eos % (Auto) 6.6 % (0.9-2.9) H 06/05/22 05:51 Baso % (Auto) 0.8 % (0.2-1.0) 06/05/22 05:51 Neut # (Auto) 4.0 x10^3/uL (2.2-4.8) 06/05/22 05:51 Lymph # (Auto) 2.9 X10^3/uL (1.3-2.9) 06/05/22 05:51 [place] # (Auto) 0.6 x10^3/uL (0.3-0.8) 06/05/22 05:51 Eos # (Auto) 0.5 x10^3/uL (0.0-0.2) H 06/05/22 05:51 Baso # (Auto) 0.1 X10^3/uL (0.0-0.1) 06/05/22 05:51 Absolute Nucleated RBC 0.1 /100WBC 06/05/22 05:51 Sodium 145 mmol/L (136-145) 06/05/22 05:51 Corrected Sodium TNP 06/05/22 05:51 Potassium 3.2 mmol/L (3.5-5.1) L 06/05/22 05:51 Chloride 109 mmol/L (98-107) H 06/05/22 05:51 Carbon Dioxide 28.8 mmol/L (21-32) 06/05/22 05:51 BUN 6 mg/dL (7-18) L 06/05/22 05:51 Creatinine 0.65 mg/dL (0.55-1.02) 06/05/22 05:51 Est GFR (MDRD) Af Amer > 60 (>60) 06/05/22 05:51 Est GFR (MDRD) Non-Af > 60 (>60) 06/05/22 05:51 Glucose 84 mg/dL (65-99) 06/05/22 05:51 Lactic Acid 1.0 mmol/L (0.4-2.0) 06/03/22 16:00 Calcium 8.5 mg/dL (8.5-10.1) 06/05/22 05:51 Corrected Calcium 9.9 mg/dL (8.5-10.1) 06/05/22 05:51 Magnesium 1.9 mg/dL (2.0-2.9) L 06/04/22 05:45 Total Bilirubin 0.20 mg/dL (0.2-1.0) 06/05/22 05:51 AST 23 Units/L (15-37) 06/05/22 05:51 ALT 28 Units/L (12-78) 06/05/22 05:51 Alkaline Phosphatase 77 Units/L (46-116) 06/05/22 05:51 Total Protein 6.1 g/dL (6.4-8.2) L 06/05/22 05:51 Albumin 2.3 g/dL (3.4-5.0) L 06/05/22 05:51 Globulin 3.8 g/dL (2.5-4.5) 06/05/22 05:51 Albumin/Globulin Ratio 0.6 Ratio (1.1-2.1) L 06/05/22 05:51 Specimen Type Clean catch urine 06/03/22 20:04 Urine Color Yellow (YELLOW) 06/03/22 20:04 Urine Appearance Cloudy (CLEAR) 06/03/22 20:04 Urine pH 8.0 (5.0 - 8.0) 06/03/22 20:04 Ur Specific [place] 1.010 (1.000-1.030) 06/03/22 20:04 Urine Protein 2+ (NEGATIVE) 06/03/22 20:04 Urine Glucose (UA) Negative (NEGATIVE) 06/03/22 20:04 Urine Ketones Negative (NEGATIVE) 06/03/22 20:04 Urine Blood 3+ (NEGATIVE) 06/03/22 20:04 Urine Nitrite Negative (NEGATIVE) 06/03/22 20:04 Urine Bilirubin Negative (NEGATIVE) 06/03/22 20:04 Urine Urobilinogen Normal (NORMAL) 06/03/22 20:04 Ur Leukocyte Esterase 3+ (NEGATIVE) 06/03/22 20:04 Urine RBC 5-10 /HPF (0-3) A 06/03/22 20:04 Urine WBC Tntc /HPF (0-5) A 06/03/22 20:04 Ur Squamous Epith Cells Few /HPF (NEGATIVE) 06/03/22 20:04 Urine Bacteria 2+ /HPF (NEGATIVE) 06/03/22 20:04 Ur Culture Indicated? Yes/culture set up 06/03/22 20:04 Plan (1) Fever: Status: Acute (2) Acute cystitis: Status: Acute Narrative Support Text: continue antibiotics and IVF (3) Altered mental status: Status: Acute
--- NOTE | 2022-06-06 10:17 | PCM.PROG ---
Progress Note Progress Note for Day of Date of Exam: 06/05/22 Subjective Subjective: Pt is a 66 year old female admitted for acute cystitis and altered mental status after failing outpatient treatment. This morning patient continues to improve. Her dysuria has almost resolved. No acute events overnight. Labs: Wbc 8.1, Hgb 11.5, Plt 242, Na 145, K 3.2, Creatinine 0.65, Glucose 84, Blood culture no growth to date, Urine culture gram negative rods. Will continue with IVF NS@75ml/h, regular diet, home medications have been resumed. She is currently on antibiotics IV meropenem. Continue to closely monitor and follow up labs in the morning. Past Medical Family Social History Allergies: Allergies Penicillins Allergy (Mild, Verified 05/15/22 09:25) meperidine [From Demerol] Allergy (Verified 06/03/22 16:07) Sulfa (Sulfonamide Antibiotics) [SULFA] Allergy (Verified 06/03/22 16:06) Review of Systems ROS changes noted: see HPI Vital Signs and I&O's Vital Signs: Temperature 96.9 F Pulse Rate [Left Radial] 73 Respiratory Rate 18 Blood Pressure [Right Arm] 106/69 Blood Pressure [Left Arm] 119/63 Blood Pressure 129/76 O2 Sat by Pulse Oximetry 96 Intake and Output: Intake & Output 06/03/22 06/04/22 06/05/22 06/06/22 23:59 23:59 23:59 23:59 Intake Total 617 / 617 2780 / 2780 2199 / 2199 620 / 620 Output Total 600 / 600 Balance 617 / 617 2180 / 2180 2199 / 2199 620 / 620 Physical Exam Oriented: Normal Eyes: Normal Ear: Normal Nose: Normal Throat: Normal Respiratory: Normal Cardiovascular: Normal : Normal Auscultation: Bowel Sounds: Normal Palpation: Normal Tenderness: Normal Skin: Normal Musculoskeletal: Normal Psychiatric: Normal Mood Description: Calm and Appropriate Affect: Normal Speech Pattern: Clear and Appropriate Laboratory and Diagnostics Result Diagrams: 06/06/22 05:40 06/06/22 05:40 Labs: 06/03/22 16:00 Blood Blood Culture - Final 06/03/22 16:11 Blood Blood Culture - Preliminary 06/03/22 20:04 Urine,Clean Catch Urine Culture - Final Escherichia Coli Laboratory WBC 7.9 X10^3/uL (3.6-10.0) 06/06/22 05:40 RBC 4.60 X10^6/uL (3.5-5.4) 06/06/22 05:40 Hgb 12.7 g/dL (12.0-16.0) 06/06/22 05:40 Hct 38.6 % (36.0-47.0) 06/06/22 05:40 MCV 83.9 fL (80.0-100.0) 06/06/22 05:40 MCH 27.6 pg (27.0-34.0) 06/06/22 05:40 MCHC 32.9 g/dL (33.0-35.0) L 06/06/22 05:40 RDW 14.9 % (11.6-16.5) 06/06/22 05:40 Plt Count 291 X10^3/uL (150.0-450.0) 06/06/22 05:40 MPV 8.1 fL (7.4-11.0) 06/06/22 05:40 Neut % (Auto) 49.8 % (42.0-75.0) 06/06/22 05:40 Lymph % (Auto) 40.2 % (21.0-51.0) 06/06/22 05:40 [place] % (Auto) 4.8 % (0.0-13.0) 06/06/22 05:40 Eos % (Auto) 4.7 % (0.9-2.9) H 06/06/22 05:40 Baso % (Auto) 0.5 % (0.2-1.0) 06/06/22 05:40 Neut # (Auto) 4.0 x10^3/uL (2.2-4.8) 06/06/22 05:40 Lymph # (Auto) 3.2 X10^3/uL (1.3-2.9) H 06/06/22 05:40 [place] # (Auto) 0.4 x10^3/uL (0.3-0.8) 06/06/22 05:40 Eos # (Auto) 0.4 x10^3/uL (0.0-0.2) H 06/06/22 05:40 Baso # (Auto) 0.0 X10^3/uL (0.0-0.1) 06/06/22 05:40 Absolute Nucleated RBC 0.0 /100WBC 06/06/22 05:40 Sodium 145 mmol/L (136-145) 06/06/22 05:40 Corrected Sodium TNP 06/06/22 05:40 Potassium 3.9 mmol/L (3.5-5.1) 06/06/22 05:40 Chloride 111 mmol/L (98-107) H 06/06/22 05:40 Carbon Dioxide 25.5 mmol/L (21-32) 06/06/22 05:40 BUN 6 mg/dL (7-18) L 06/06/22 05:40 Creatinine 0.66 mg/dL (0.55-1.02) 06/06/22 05:40 Est GFR (MDRD) Af Amer > 60 (>60) 06/06/22 05:40 Est GFR (MDRD) Non-Af > 60 (>60) 06/06/22 05:40 Glucose 90 mg/dL (65-99) 06/06/22 05:40 Lactic Acid 1.0 mmol/L (0.4-2.0) 06/03/22 16:00 Calcium 9.1 mg/dL (8.5-10.1) 06/06/22 05:40 Corrected Calcium 10.2 mg/dL (8.5-10.1) H 06/06/22 05:40 Magnesium 2.0 mg/dL (2.0-2.9) 06/06/22 05:40 Total Bilirubin 0.20 mg/dL (0.2-1.0) 06/06/22 05:40 AST 21 Units/L (15-37) 06/06/22 05:40 ALT 29 Units/L (12-78) 06/06/22 05:40 Alkaline Phosphatase 87 Units/L (46-116) 06/06/22 05:40 Total Protein 6.6 g/dL (6.4-8.2) 06/06/22 05:40 Albumin 2.6 g/dL (3.4-5.0) L 06/06/22 05:40 Globulin 4.0 g/dL (2.5-4.5) 06/06/22 05:40 Albumin/Globulin Ratio 0.7 Ratio (1.1-2.1) L 06/06/22 05:40 Specimen Type Clean catch urine 06/03/22 20:04 Urine Color Yellow (YELLOW) 06/03/22 20:04 Urine Appearance Cloudy (CLEAR) 06/03/22 20:04 Urine pH 8.0 (5.0 - 8.0) 06/03/22 20:04 Ur Specific [place] 1.010 (1.000-1.030) 06/03/22 20:04 Urine Protein 2+ (NEGATIVE) 06/03/22 20:04 Urine Glucose (UA) Negative (NEGATIVE) 06/03/22 20: Urine Ketones Negative (NEGATIVE) 06/03/22 20:04 Urine Blood 3+ (NEGATIVE) 06/03/22 20:04 Urine Nitrite Negative (NEGATIVE) 06/03/22 20:04 Urine Bilirubin Negative (NEGATIVE) 06/03/22 20:04 Urine Urobilinogen Normal (NORMAL) 06/03/22 20:04 Ur Leukocyte Esterase 3+ (NEGATIVE) 06/03/22 20:04 Urine RBC 5-10 /HPF (0-3) A 06/03/22 20:04 Urine WBC Tntc /HPF (0-5) A 06/03/22 20:04 Ur Squamous Epith Cells Few /HPF (NEGATIVE) 06/03/22 20:04 Urine Bacteria 2+ /HPF (NEGATIVE) 06/03/22 20:04 Ur Culture Indicated? Yes/culture set up 06/03/22 20:04 Plan (1) Fever: Status: Acute (2) Acute cystitis: Status: Acute (3) Altered mental status: Status: Acute
--- NOTE | 2022-06-06 11:50 | W.DIS.FURT ---
Summary of Discharge Discharge Summary of Date Date of Exam: 06/06/22 Admission Date Date of Admission: 06/03/22 Admission Diagnosis Hospital Course: Pt is a 66 year old female admitted for acute cystitis and altered mental status after failing outpatient treatment. Her hospital/treatment course included: IVF NS@75ml/h, regular diet, home medications have been resumed, and antibiotics IV meropenem. Labs: Wbc 7.9, Hgb 12.7, Plt 291, Na 145, K 3.9, Creatinine 0.66, Glucose 90, Blood culture no growth to date, Urine culture positive for E coli. Pt responded well to treatments. Rx keflex. Pt discharged in stable condition. Instructed to follow up with pcp in 1 week. Vital Signs: Vital Signs (72 hours) 06/03/22 15:59 06/03/22 16:32 06/03/22 19:00 Temperature 98.5 F Pulse Rate [Left Radial] 130 H Respiratory Rate 20 Blood Pressure [Left Arm] 119/63 Blood Pressure [Right Arm] 119/63 O2 Sat by Pulse Oximetry 93 L Oxygen Delivery Method Room Air Room Air Room Air 06/03/22 20:00 06/03/22 21:00 06/03/22 23:08 Temperature 101.1 F H 100.3 F H Pulse Rate [Left Radial] 114 H Respiratory Rate 20 18 Blood Pressure [Left Arm] Blood Pressure [Right Arm] 124/62 O2 Sat by Pulse Oximetry 94 L Oxygen Delivery Method Room Air 06/03/22 22:54 06/04/22 00:00 06/04/22 00:08 Temperature 101.3 F H 99.7 F H Pulse Rate [Left Radial] 118 H Respiratory Rate 20 20 Blood Pressure [Left Arm] Blood Pressure [Right Arm] 119/57 O2 Sat by Pulse Oximetry 93 L Oxygen Delivery Method Room Air 06/04/22 04:00 06/04/22 07:55 06/04/22 07:00 Temperature 98.3 F 97.3 F L Pulse Rate [Left Radial] 103 H 107 H Respiratory Rate 20 20 Blood Pressure [Left Arm] Blood Pressure [Right Arm] 132/68 132/66 O2 Sat by Pulse Oximetry 95 94 L Oxygen Delivery Method Room Air Room Air Room Air 06/04/22 12:00 06/04/22 16:00 06/04/22 21:44 Temperature 98.0 F 99.6 F Pulse Rate [Left Radial] 110 H 106 H Respiratory Rate 18 20 20 Blood Pressure [Left Arm] Blood Pressure [Right Arm] 115/58 108/54 O2 Sat by Pulse Oximetry 98 95 Oxygen Delivery Method Room Air Room Air 06/04/22 19:00 06/04/22 20:00 06/04/22 22:44 Temperature 98.5 F Pulse Rate [Left Radial] 100 H Respiratory Rate 18 20 Blood Pressure [Left Arm] Blood Pressure [Right Arm] 115/64 O2 Sat by Pulse Oximetry 94 L Oxygen Delivery Method Room Air Room Air 06/05/22 00:00 06/05/22 04:00 06/05/22 08:00 Temperature 97.9 F 97.9 F 98.6 F Pulse Rate [Left Radial] 94 H 92 H 91 H Respiratory Rate 20 18 20 Blood Pressure [Left Arm] Blood Pressure [Right Arm] 98/52 105/52 113/57 O2 Sat by Pulse Oximetry 94 L 94 L 98 Oxygen Delivery Method Room Air Room Air Room Air 06/05/22 07:00 06/05/22 12:00 06/05/22 16:00 Temperature 97.3 F L 98.1 F Pulse Rate [Left Radial] 89 104 H Respiratory Rate 18 20 Blood Pressure [Left Arm] Blood Pressure [Right Arm] 112/54 133/60 O2 Sat by Pulse Oximetry 93 L 95 Oxygen Delivery Method Room Air Room Air Room Air 06/05/22 19:00 06/05/22 19:55 06/05/22 22:10 Temperature 98.6 F Pulse Rate [Left Radial] 98 H Respiratory Rate 18 18 Blood Pressure [Left Arm] Blood Pressure [Right Arm] 122/58 O2 Sat by Pulse Oximetry 96 Oxygen Delivery Method Room Air Room Air 06/05/22 23:37 06/05/22 23:10 06/06/22 04:00 Temperature 98 F 98.2 F Pulse Rate [Left Radial] 108 H 86 Respiratory Rate 20 20 18 Blood Pressure [Left Arm] Blood Pressure [Right Arm] 118/54 104/54 O2 Sat by Pulse Oximetry 96 94 L Oxygen Delivery Method Room Air Room Air 06/06/22 08:00 06/06/22 07:00 Temperature 96.9 F L Pulse Rate [Left Radial] 73 Respiratory Rate 18 Blood Pressure [Left Arm] Blood Pressure [Right Arm] 106/69 O2 Sat by Pulse Oximetry 96 Oxygen Delivery Method Room Air Room Air Labs: Laboratory Last Values WBC 7.9 X10^3/uL (3.6-10.0) 06/06/22 05:40 RBC 4.60 X10^6/uL (3.5-5.4) 06/06/22 05:40 Hgb 12.7 g/dL (12.0-16.0) 06/06/22 05:40 Hct 38.6 % (36.0-47.0) 06/06/22 05:40 MCV 83.9 fL (80.0-100.0) 06/06/22 05:40 MCH 27.6 pg (27.0-34.0) 06/06/22 05:40 MCHC 32.9 g/dL (33.0-35.0) L 06/06/22 05:40 RDW 14.9 % (11.6-16.5) 06/06/22 05:40 Plt Count 291 X10^3/uL (150.0-450.0) 06/06/22 05:40 MPV 8.1 fL (7.4-11.0) 06/06/22 05:40 Neut % (Auto) 49.8 % (42.0-75.0) 06/06/22 05:40 Lymph % (Auto) 40.2 % (21.0-51.0) 06/06/22 05:40 [place] % (Auto) 4.8 % (0.0-13.0) 06/06/22 05:40 Eos % (Auto) 4.7 % (0.9-2.9) H 06/06/22 05:40 Baso % (Auto) 0.5 % (0.2-1.0) 06/06/22 05:40 Neut # (Auto) 4.0 x10^3/uL (2.2-4.8) 06/06/22 05:40 Lymph # (Auto) 3.2 X10^3/uL (1.3-2.9) H 06/06/22 05:40 [place] # (Auto) 0.4 x10^3/uL (0.3-0.8) 06/06/22 05:40 Eos # (Auto) 0.4 x10^3/uL (0.0-0.2) H 06/06/22 05:40 Baso # (Auto) 0.0 X10^3/uL (0.0-0.1) 06/06/22 05:40 Absolute Nucleated RBC 0.0 /100WBC 06/06/22 05:40 Sodium 145 mmol/L (136-145) 06/06/22 05:40 Corrected Sodium TNP 06/06/22 05:40 Potassium 3.9 mmol/L (3.5-5.1) 06/06/22 05:40 Chloride 111 mmol/L (98-107) H 06/06/22 05:40 Carbon Dioxide 25.5 mmol/L (21-32) 06/06/22 05:40 BUN 6 mg/dL (7-18) L 06/06/22 05:40 Creatinine 0.66 mg/dL (0.55-1.02) 06/06/22 05:40 Est GFR (MDRD) Af Amer > 60 (>60) 06/06/22 05:40 Est GFR (MDRD) Non-Af > 60 (>60) 06/06/22 05:40 Glucose 90 mg/dL (65-99) 06/06/22 05:40 Lactic Acid 1.0 mmol/L (0.4-2.0) 06/03/22 16:00 Calcium 9.1 mg/dL (8.5-10.1) 06/06/22 05:40 Corrected Calcium 10.2 mg/dL (8.5-10.1) H 06/06/22 05:40 Magnesium 2.0 mg/dL (2.0-2.9) 06/06/22 05:40 Total Bilirubin 0.20 mg/dL (0.2-1.0) 06/06/22 05:40 AST 21 Units/L (15-37) 06/06/22 05:40 ALT 29 Units/L (12-78) 06/06/22 05:40 Alkaline Phosphatase 87 Units/L (46-116) 06/06/22 05:40 Total Protein 6.6 g/dL (6.4-8.2) 06/06/22 05:40 Albumin 2.6 g/dL (3.4-5.0) L 06/06/22 05:40 Globulin 4.0 g/dL (2.5-4.5) 06/06/22 05:40 Albumin/Globulin Ratio 0.7 Ratio (1.1-2.1) L 06/06/22 05:40 Specimen Type Clean catch urine 06/03/22 20:04 Urine Color Yellow (YELLOW) 06/03/22 20:04 Urine Appearance Cloudy (CLEAR) 06/03/22 20:04 Urine pH 8.0 (5.0 - 8.0) 06/03/22 20:04 Ur Specific [place] 1.010 (1.000-1.030) 06/03/22 20:04 Urine Protein 2+ (NEGATIVE) 06/03/22 20:04 Urine Glucose (UA) Negative (NEGATIVE) 06/03/22 20:04 Urine Ketones Negative (NEGATIVE) 06/03/22 20:04 Urine Blood 3+ (NEGATIVE) 06/03/22 20:04 Urine Nitrite Negative (NEGATIVE) 06/03/22 20:04 Urine Bilirubin Negative (NEGATIVE) 06/03/22 20:04 Urine Urobilinogen Normal (NORMAL) 06/03/22 20:04 Ur Leukocyte Esterase 3+ (NEGATIVE) 06/03/22 20:04 Urine RBC 5-10 /HPF (0-3) A 06/03/22 20:04 Urine WBC Tntc /HPF (0-5) A 06/03/22 20:04 Ur Squamous Epith Cells Few /HPF (NEGATIVE) 06/03/22 20:04 Urine Bacteria 2+ /HPF (NEGATIVE) 06/03/22 20:04 Ur Culture Indicated? Yes/culture set up 06/03/22 20:04 Reason For Visit: UTI FAILED OUTPATIENT TREATMENT, CONFUSION Discharge Date Discharge Date: 06/06/22 Discharge Diagnosis All Active Problems (Updated 06/04/22 @ 07:42 by Abad Kilgore) Altered mental status (Acute) Acute cystitis (Acute) UTI symptoms (Acute) Fever (Acute) UTI (urinary tract infection) (Acute) Brain mass (Acute) Plan of Treatment: Continue with present treatment and follow up plan. Pt is to keep follow up a ppointment as instructed and take medications as ordered. Discharge Medications Discharge Medications: Penicillins Allergy (Mild, Verified 05/15/22 09:25) meperidine [From Demerol] Allergy (Verified 06/03/22 16:07) Sulfa (Sulfonamide Antibiotics) [SULFA] Allergy (Verified 06/03/22 16:06) CONTINUE taking the following medications aspirin 81 mg tablet,delayed release 81 mg PO QDAY 06/03/22 [History] New Prescriptions cephalexin 500 mg capsule 500 mg PO BID 6 days #12 caps 06/06/22 [Rx] Discharge Disposition Discharge Disposition: Home Discharge Condition: Stable Discharge Plan Discharge Plan Hospital Course: Pt is a 66 year old female admitted for acute cystitis and altered mental status after failing outpatient treatment. Her hospital/treatment course included: IVF NS@75ml/h, regular diet, home medications have been resumed, and antibiotics IV meropenem. Labs: Wbc 7.9, Hgb 12.7, Plt 291, Na 145, K 3.9, Creatinine 0.66, Glucose 90, Blood culture no growth to date, Urine culture positive for E coli. Pt responded well to treatments. Rx keflex. Pt discharged in stable condition. Instructed to follow up with pcp in 1 week. Patient Disposition: HOME, SELF-CARE Condition: Stable Health Concerns: Post Hospitalization: new medications and changes needed to prevent readmission or further decline. Pt educated and given instructions on all concerns. Plan of Treatment: Continue with present treatment and follow up plan. Pt is to keep follow up appointment as instructed and take medications as ordered. Prescriptions: New cephalexin 500 mg capsule 500 mg PO BID 6 Days Qty: 12 0RF Continued zolpidem [Ambien] 10 mg tablet 10 mg PO HS PRN (Reason: Insomnia) gabapentin 100 mg capsule 100 mg PO BID PRN (Reason: arthritis) baclofen 20 mg tablet 20 mg PO BID PRN atorvastatin 40 mg tablet 40 mg PO HS alprazolam 0.5 mg tablet 0.5 mg PO BID MDD 2 PRN (Reason: anxiety) 30 Days Qty: 75 0RF hydrocodone-acetaminophen 10-325 mg tablet 1 tab PO TID MDD 3 PRN (Reason: pain) 30 Days Qty: 90 0RF aspirin 81 mg Tablet,Delayed Release (Dr/Ec) 81 mg PO QDAY Follow ups/Referrals Follow ups/Referrals: Abad Kilgore [Primary Care Provider] - 1 WEEK Instructions Stand Alone Forms: Excuse From Work or School
[2022-06-06 13:10] VITALS: BP 121/66
== END 2022-06-06 13:50 | disposition home or self-care (01) | DRG 690 ==
LOC: MED/SURG → OBSVTOIN 14:29
PROVIDERS: ADMIT Family Medicine; ATTEND Family Medicine
DX: I10 Essential (primary) hypertension; B96.29 Other Escherichia coli [E. coli] as the cause of diseases classified elsewhere; N30.00 Acute cystitis without hematuria; R50.9 Fever, unspecified; R41.82 Altered mental status, unspecified; R26.89 Other abnormalities of gait and mobility; R30.0 Dysuria